=== PATIENT | female | born 1980 | race Hispanic/Latino ===

== ENCOUNTER 2018-06-17 13:56 | Outpatient (CLI) | payer OTHER | END 2018-06-17 13:57 | disposition home or self-care (01) | LOC: DTY/OP 13:56 | PROVIDERS: ATTEND Specialist | DX: Z01.818 Encounter for other preprocedural examination (principal); E66.01 Morbid (severe) obesity due to excess calories | CPT/HCPCS: 97802 ==

== ENCOUNTER 2018-08-18 11:53 | Outpatient (CLI) | payer OTHER ==
--- NOTE | 2018-08-18 12:53 | MMO ---
Bilateral MAMMO Bilat Screen [facility]. CLINICAL HISTORY: Patient is 38 years old and is seen for screening. The patient has the following family history of breast cancer: mother, at age 49. The patient has no personal history of cancer. VIEWS: The views performed were: bilateral craniocaudal with tomosynthesis and bilateral mediolateral oblique with tomosynthesis. MAMMOGRAM FINDINGS: There are scattered fibroglandular densities. There are no suspicious masses, suspicious calcifications, or new areas of architectural distortion. IMPRESSION: THERE IS NO MAMMOGRAPHIC EVIDENCE OF MALIGNANCY. A ROUTINE FOLLOW-UP MAMMOGRAM IN 1 YEAR IS RECOMMENDED. THE RESULTS OF THIS EXAM WERE SENT TO THE PATIENT. ACR BI-RADS Category 1 - Negative MAMMOGRAPHY NOTE: 1. A negative mammogram report should not delay a biopsy if a dominant of clinically suspicious mass is present. 2. Approximately 10% to 15% of breast cancers are not detected by mammography. 3. Adenosis and dense breasts may obscure an underlying neoplasm.
== END 2018-08-18 11:54 | disposition home or self-care (01) ==
LOC: BICMAMMO 11:53
PROVIDERS: ATTEND Family Medicine
DX: Z12.31 Encounter for screening mammogram for malignant neoplasm of breast (principal); Z80.3 Family history of malignant neoplasm of breast
CPT/HCPCS: 77063; 77067

== ENCOUNTER 2019-01-06 12:47 | Outpatient (CLI) | payer OTHER ==
--- NOTE | 2019-01-06 15:57 | MRI ---
MRI OF THE RIGHT FOOT PERFORMED WITHOUT CONTRAST ENHANCEMENT: 01/06/19 HISTORY: Achilles tendon pain, chronic. Pain has been worsening. There are tendinopathy changes of the Achilles tendon with some minimal interstitial tearing associat ed with the area of degeneration of the tendon with a small insertional tear. There is also edema kevin nge within Kager's fat. There is no signs of any significant tear to the tendon. Anterior extensor tendon group is normal in appearance. Peroneus longus and brevis tendons appear intact. Posterior tibialis tendon, flexor digitorum longus and flexor hallucis longus tendons are unremarkable. The anterior extensor tendon group is also unrem arkable. There is a calcaneal spur at the plantar fascia insertion with some mild thickening to the central co rd. Sinus tarsi region is normal in appearance. No signs of any osteochondral type lesion of the talar dome. No significant ligamentous findings. IMPRESSION: Some moderate Achilles tendinopathy changes with a tiny insertional tear of the Achilles tendon and s ome mild paratenonitis with some inflammatory change of the paratenon at the Achilles tendon insertio n. POS: TPC
== END 2019-01-06 12:48 | disposition home or self-care (01) ==
LOC: SCSMRI 12:47
PROVIDERS: ATTEND Podiatrist
DX: M76.61 Achilles tendinitis, right leg (principal); S86.011A Strain of right Achilles tendon, initial encounter

== ENCOUNTER 2019-12-25 12:59 | Outpatient (CLI) | payer OTHER | END 2019-12-25 13:00 | disposition home or self-care (01) | LOC: DTY/OP 12:59 | PROVIDERS: ATTEND Specialist | DX: Z01.818 Encounter for other preprocedural examination (principal); R73.9 Hyperglycemia, unspecified; E78.5 Hyperlipidemia, unspecified; E66.01 Morbid (severe) obesity due to excess calories | CPT/HCPCS: 97802 ==

== ENCOUNTER 2020-01-22 12:53 | Outpatient (CLI) | payer OTHER | END 2020-01-22 12:54 | disposition home or self-care (01) | LOC: DTY/OP 12:53 | PROVIDERS: ATTEND Specialist | DX: Z01.818 Encounter for other preprocedural examination (principal); R73.9 Hyperglycemia, unspecified; E78.5 Hyperlipidemia, unspecified; E66.01 Morbid (severe) obesity due to excess calories | CPT/HCPCS: 97802 ==

== ENCOUNTER 2020-03-10 11:15 | Inpatient (IN) | payer OTHER ==
[2020-03-14 09:56] VITALS: BMI 38.9
[2020-03-15] MEDS ORDERED: Sodium Chloride 0.9% 0 ML ONE (06:19)
[2020-03-15] MEDS ORDERED: Ketorolac Tromethamine 30 MG/ML VIAL ONE (06:19)
[2020-03-15] MEDS ORDERED: cefOXitin Sodium/Dextrose 2 GM/50 ML BAG ONE (06:19)
[2020-03-15] MEDS ORDERED: Scopolamine 1.5 mg/72 hour Patch ONE (06:19)
[2020-03-15] MEDS ORDERED: Acetaminophen 500 MG TAB ONE (06:19)
[2020-03-15] MEDS ORDERED: Heparin 5,000 UNITS/ML VIAL ONE (06:20)
[2020-03-15] MEDS ORDERED: Lidocaine 1% w/Epinephrine 1:100K 20 ML VIAL ONE (06:31)
[2020-03-15] MEDS ORDERED: Bupivacaine 0.25% HCL 30 ML VIAL ONE (06:31)
[2020-03-15] MEDS ORDERED: Midazolam HCl 2 mg/2 ml Vial ONE (07:08)
[2020-03-15] MEDS ORDERED: Fentanyl 100 MCG/2 ML VIAL ONE ×4 (07:08→10:32)
[2020-03-15] MEDS ORDERED: Rocuronium Bromide 10 MG/ML (10ML VIAL) ONE (08:54)
[2020-03-15] MEDS ORDERED: Dexamethasone 20 MG/5 ML VIAL ONE (08:54)
[2020-03-15] MEDS ORDERED: Glycopyrrolate 0.2 MG/ML 5 ML SYRINGE ONE (08:54)
[2020-03-15] MEDS ORDERED: PROPOFOL 200 MG/20 ML VIAL ONE (08:54)
[2020-03-15] MEDS ORDERED: Ondansetron PF 4 MG/2 ML Vial ONE (08:54)
[2020-03-15] MEDS ORDERED: Morphine 2 MG/ML VIAL SLOW IVP PRN (09:29)
[2020-03-15] MEDS ORDERED: diphenhydrAMINE 50 MG/ML VIAL IVP PRN (09:29)
[2020-03-15] MEDS ORDERED: Dextrose 50% Abboject 50 ML SYRINGE SLOW IVP PRN (09:29)
[2020-03-15] MEDS ORDERED: Dextrose 5% in Water 1,000 ML IV PRN (09:29)
[2020-03-15] MEDS ORDERED: Ondansetron PF 4 MG/2 ML Vial IVP PRN (09:29)
[2020-03-15] MEDS ORDERED: hydrALAZINE 20 MG/ML VIAL SLOW IVP PRN (09:29)
[2020-03-15] MEDS ORDERED: Ondansetron HCl/PF 4 MG/2 ML Vial IVP PRN (09:37)
[2020-03-15] MEDS ORDERED: Promethazine HCl 25 MG/ML VIAL SLOW IVP PRN (09:37)
[2020-03-15] MEDS ORDERED: Promethazine HCl 25 MG/ML VIAL IM PRN (09:37)
[2020-03-15] MEDS ORDERED: HYDROmorphone 0.5 MG/0.5 ML SYRINGE ONE (10:39)
[2020-03-15] MEDS: Ketorolac Tromethamine 30 MG/ML VIAL IVP SCH ×2 (12:20→18:00)
[2020-03-15] MEDS: Hydrocodone-Acetamin 15 ML UDCUP PO PRN ×2 (12:20→17:59)
[2020-03-15] MEDS: D5 1/2 NS w/20 mEq KCL 1,000 ML IV SCH ×2 (12:22→21:13)
--- NOTE | 2020-03-15 13:14 | OP ---
DATE OF PROCEDURE: 03/15/2020 PREOPERATIVE DIAGNOSIS: Morbid obesity. POSTOPERATIVE DIAGNOSIS: Morbid obesity. PROCEDURE PERFORMED: Laparoscopic vertical sleeve gastrectomy using the ViSiGi device. ANESTHESIA: General endotracheal. INDICATIONS: The patient is a 40-year-old morbidly obese, female. She has undergone preoperative evaluation and education, presents at this time for sleeve gastrectomy. DESCRIPTION OF OPERATION: Informed consent was obtained. The patient was taken to the operating room, where general endotracheal anesthesia was obtained with the patient in supine position. Abdomen was prepped with ChloraPrep and draped in sterile fashion. Local anesthetic was infiltrated and 5 mm supraumbilical incision was created through which a Veress needle was passed in the peritoneal cavity and pneumoperitoneum was established using carbon dioxide up to pressure of 15 mmHg. A 5-mm trocar port was passed through same incision. Laparoscopic camera was passed through this port. Under direct vision, four additional ports were placed including bilateral subcostal 5 mm ports, a 12 mm right paramedian port, and a 15 mm left paramedian port. A Yamilka retractor was passed through a 5 mm epigastric incision and used to elevate the left lobe of the liver. She had negligible fatty change to her liver. There was no evidence of adhesions or intraabdominal pathology at the beginning of the operation. The pylorus was identified and about 5 cm proximal to the pylorus, I began dissection of the greater curvature, clearing the greater curvature of all omental and vascular tissue using the LigaSure device. This dissection was carried up around the greater curvature, dividing the short gastrics and freeing the proximal stomach from the spleen and clearing the left carlos of the diaphragm. Posterior adhesions were mobilized. The stomach was entirely mobile. The ViSiGi device had been passed down within the stomach and used for decompression. This juncture was positioned within the pylorus and placed to suction. Using this as a guide along the lesser curvature, the sleeve gastrectomy was initiated using the [place] stapler. A series of fires of the [place] stapler were accomplished using the adhesive staple buttressing material. The initial fire was a green fire, followed by a gold load. On the third fire of the stapler using a blue load, there was what appeared to be a stapler malfunction. At the distal aspect of the staple line, when the staple was removed, there had been non-fire of the taylor on the patient's right-hand side (on the sleeve side). The lumen was opened into the residual gastric sleeve and there was some bleeding from the tissue edges. Some of the taylor had fired distally. The open segment appeared to be about a centimeter, maybe a little bit longer. I was able to visualize the ViSiGi device within the lumen. There was no spillage of contents. Suction was stopped on the ViSiGi device. I thereafter completed this sleeve with a couple more fires of blue loads up to the angle of His, stand appropriately wide from the esophagogastric junction. Once there was complete division of the stomach, the resected specimen was replaced laterally. Attention was turned to the defect in the sleeve. I closed the defect with a series of interrupted sutures of 3-0 Vicryl, placing 5 separate sutures each of which was tied extracorporeally. This appeared to be appropriate closure of the defect. I then tested the sleeve to make sure it was airtight by positioning the entire sleeve under water while the sleeve was insufflated using the ViSiGi. There was no evidence of air leak. Because of the problem that it occurred in the sleeve, I decided to place a drain. #19 round fluted drain was brought out right lateral and positioned up along the sleeve. It was positioned up into the left upper quadrant. The drain was secured to the skin exit site with 3-0 nylon suture. The area was thoroughly irrigated and all irrigant was aspirated. There had been no spillage that was visualized of any gastric contents through the opening. The resected segment of the stomach was removed through the 15 mm port site and the fascia was then closed with 0 Vicryl suture using a GraNee needle in a [id number] fashion. All ports and instruments were removed under direct vision. Pneumoperitoneum was carefully evacuated. 0.25% Marcaine with epinephrine was infiltrated at each port site. The 15-mm port site was thoroughly irrigated. Skin edges were approximated with 4-0 Monocryl subcuticular suture and Dermabond. A sterile occlusive dressing was applied over the drain exit site in the right abdomen. Blood loss had been negligible through the operation. There had been a mechanical failure of the stapler that led to an intraoperative complication that was repaired satisfactorily during the surgery. Job ID: [id number]
[2020-03-15] MEDS: Morphine 4 MG/ML VIAL SLOW IVP PRN ×3 (13:18→21:17)
[2020-03-15] MEDS: Promethazine HCl 25 MG/ML VIAL IM PRN ×2 (13:27→18:06)
[2020-03-15] MEDS ORDERED: Enoxaparin Sodium 40 MG/0.4 ML SYRINGE SC SCH (21:00)
[2020-03-16] MEDS: D5 1/2 NS w/20 mEq KCL 1,000 ML IV SCH ×2 (00:25→09:32)
[2020-03-16] MEDS: Ketorolac Tromethamine 30 MG/ML VIAL IVP SCH ×2 (00:29→05:16)
[2020-03-16] MEDS: Morphine 4 MG/ML VIAL SLOW IVP PRN (00:30)
[2020-03-16 06:22] LABS: #Lymphocytes 2.5 thou/uL (1.20-3.40); #Monocytes 1.2 thou/uL (0.11-0.59); #Neutrophils 13.9 thou/uL (1.40-6.50); %Basophils 0.2 % (0.0-1.0); %Eosinophils 0.2 % (0.0-10.0); %Neutrophils 78.6 % (42.0-75.0); Hemoglobin 13.7 g/dL (12.0-16.0); Mean Corpuscular HGB CONC 33.2 g/dL (32.0-36.0); Mean Corpuscular Hemoglobin 28.9 pg (27.0-31.0); Mean Corpuscular Volume 86.9 fL (78.0-98.0); Platelet Count 341 thou/uL (130-400); Red Blood Cell (RBC) Count 4.73 mill/uL (4.20-5.40); White Blood Cell (WBC) Count 17.7 thou/uL (4.8-10.8)
[2020-03-16 06:40] LABS: Anion Gap 14 mmol/L (10-20); BUN (Urea Nitrogen) 8 mg/dL (7.0-18.7); Calc. Creatinine Clearance 174 mL/min (70-130); Calcium 9.1 mg/dL (7.8-10.44); Carbon Dioxide 23 mmol/L (22-29); Chloride 106 mmol/L (98-107); Estimated GFR-MDRD 85; Glucose 95 mg/dL (70-105); Potassium 4.3 mmol/L (3.5-5.1); Sodium 139 mmol/L (136-145)
[2020-03-16 07:33] VITALS: BP 113/65; TEMP 98.5
--- NOTE | 2020-03-16 08:49 | RAD ---
Esophagram HISTORY: Bariatric surgery. FINDINGS: Single column contrast evaluation shows postoperative changes consistent with gastric sleev e procedure. Mild persistent narrowing at the lower esophageal sphincter. Some images show irregular narrowing at the gastric cardia that is relieved on several images and consistent with sveta stalsis. Contrast remained within the enteric lumen. Extension to the second portion duodenum without holdup. IMPRESSION : Postoperative changes gastric sleeve procedure. No evidence of leak or obstruction. Narrowing at the lower esophageal sphincter. Correlate clinically regarding the possibility of chroni c stenosis.
[2020-03-16] MEDS ORDERED: Pantoprazole 40 MG VIAL IVP SCH (09:00)
[2020-03-16] MEDS: Hydrocodone-Acetamin 15 ML UDCUP PO PRN (09:24)
== END 2020-03-16 10:52 | disposition home or self-care (01) | DRG 620 ==
LOC: SURG A 03-15 06:01 → SURG B 03-15 12:06
PROVIDERS: ADMIT Specialist; ATTEND Specialist
PROC: 0DB64Z3 Excision of Stomach, Percutaneous Endoscopic Approach, Vertical (ICD-10-PCS; principal; 2020-03-15)
PROC: 0DQ64ZZ Repair Stomach, Percutaneous Endoscopic Approach (ICD-10-PCS; 2020-03-15)
DX: E66.01 Morbid (severe) obesity due to excess calories (principal); K91.61 Intraoperative hemorrhage and hematoma of a digestive system organ or structure complicating a digestive system procedure; F41.9 Anxiety disorder, unspecified; F32.9 Major depressive disorder, single episode, unspecified; Y83.8 Other surgical procedures as the cause of abnormal reaction of the patient, or of later complication, without mention of misadventure at the time of the procedure; Z68.41 Body mass index [BMI] 40.0-44.9, adult
CPT/HCPCS: 36415; 74240; 80048; 85025; 88307; 88312; C9113; J0694; J1100; J1170; J1644; J1650; J1885; J2250; J2270; J2405; J2550; J2704; J3010; J3480; J3490; S0020

== ENCOUNTER 2020-03-11 06:42 | Outpatient (CLI) | payer OTHER ==
[2020-03-12 03:18] LABS: SARS-CoV-2 MS2 Positive; SARS-CoV-2 N Gene Negative; SARS-CoV-2 S Gene Negative; SARS-CoV-2 by NAA Not Detected (NotDetected); SARS-CoV-2 orf1ab Negative
--- NOTE | 2020-03-16 08:31 | EKG ---
Test Reason : PREOP Blood Pressure : / mmHG Vent. Rate : 060 BPM Atrial Rate : 060 BPM P-R Int : 164 ms QRS Dur : 100 ms QT Int : 432 ms P-R-T Axes : 052 033 060 degrees QTc Int : 432 ms Normal sinus rhythm Incomplete right bundle branch block Borderline ECG No previous ECGs available Confirmed by ROMI CHOWDHURY, RUPA ([id number]) on 03/16/2020 8:31:26 AM Referred By: Marcy RAMOS Confirmed By:RUPA LLANOS MD
== END 2020-03-11 06:43 | disposition home or self-care (01) ==
LOC: LABBT 06:42
PROVIDERS: ATTEND Specialist
DX: Z01.818 Encounter for other preprocedural examination (principal); Z20.828 Contact with and (suspected) exposure to other viral communicable diseases; E66.01 Morbid (severe) obesity due to excess calories
CPT/HCPCS: 87635; 93005; 93010; U0003

== ENCOUNTER 2021-02-14 14:02 | Outpatient (CLI) | payer OTHER | END 2021-02-14 14:03 | disposition home or self-care (01) | LOC: BICMAMMO 14:02 | PROVIDERS: ATTEND Nurse Practitioner Family | DX: Z12.31 Encounter for screening mammogram for malignant neoplasm of breast (principal); Z80.3 Family history of malignant neoplasm of breast | CPT/HCPCS: 77063; 77067 ==

== ENCOUNTER 2022-11-15 06:55 | Day surgery (SDC) | payer BC ==
[2022-11-12 12:34] VITALS: BMI 25.0
[2022-11-15] MEDS ORDERED: Bupivacaine HCl 0.5%/Epinephrine 1:200,000/PF 30 ml Vial ONE (10:01)
[2022-11-15] MEDS ORDERED: HYDROmorphone 0.5 MG/0.5 ML SYRINGE ONE (10:08)
[2022-11-15] MEDS ORDERED: Promethazine HCl 25 MG/ML VIAL ONE (10:09)
[2022-11-15] MEDS ORDERED: Sodium Chloride 0.9% 100 ML ONE (10:13)
[2022-11-15] MEDS ORDERED: CEFAZOLIN 2 GM VIAL ONE (10:13)
[2022-11-15] MEDS ORDERED: PROPOFOL 200 MG/20 ML VIAL ONE (10:29)
[2022-11-15] MEDS ORDERED: ePHEDrine Sulfate 50 MG/10 ML VIAL ONE (10:29)
[2022-11-15] MEDS ORDERED: Ondansetron PF 4 MG/2 ML Vial ONE (10:29)
[2022-11-15] MEDS ORDERED: Lidocaine 1% PF 5 ML VIAL ONE (10:29)
[2022-11-15] MEDS ORDERED: Ketorolac Tromethamine 30 MG/ML VIAL ONE (10:29)
[2022-11-15] MEDS ORDERED: Dexamethasone 20 MG/5 ML VIAL ONE (10:29)
[2022-11-15] MEDS ORDERED: Fentanyl 250 MCG/5 ML VIAL ONE (11:21)
[2022-11-15] MEDS ORDERED: HYDROcodone/Acetaminophen 5/325 mg Tablet ONE (12:40)
== END 2022-11-15 13:07 | disposition home or self-care (01) ==
LOC: SDC 06:55
PROVIDERS: ATTEND Orthopaedic Surgery
PROC: 0LN40ZZ Release Left Upper Arm Tendon, Open Approach (ICD-10-PCS; principal; 2022-11-15)
DX: M77.12 Lateral epicondylitis, left elbow (principal); G56.02 Carpal tunnel syndrome, left upper limb; E66.01 Morbid (severe) obesity due to excess calories; Z68.25 Body mass index [BMI] 25.0-25.9, adult; Z79.899 Other long term (current) drug therapy
CPT/HCPCS: J1100; J1170; J1885; J2405; J2550; J2704; J3010; J3490

== ENCOUNTER 2023-09-03 08:27 | Outpatient (CLI) | payer BC | END 2023-09-03 08:28 | disposition home or self-care (01) | LOC: BICMAMMO 08:27 | PROVIDERS: ATTEND Family Medicine | DX: Z12.31 Encounter for screening mammogram for malignant neoplasm of breast (principal); Z80.3 Family history of malignant neoplasm of breast | CPT/HCPCS: 77063; 77067 ==